=== PATIENT | male | born 1975 | race Caucasian/White ===

== ENCOUNTER 2022-01-07 09:20 | Day surgery (SDC) | payer BC ==
[2022-01-07] MEDS ORDERED: ZOLOFT 50MG50 MG PO (09:34)
[2022-01-07 10:55] VITALS: BP 110/78; PULSE 67; TEMP 97
--- NOTE | 2022-01-07 10:55 | NUR ---
Pt in room from endo suite. Written report obtained. Pt provided ice water and plain toast per request. Call sheldon is within reach on side table.
[2022-01-07 11:10] VITALS: BP 103/89; PULSE 66
--- NOTE | 2022-01-07 11:10 | NUR ---
VSS. Pt denies nausea. No vomiting. was brought into room. Call sheldon remains within reach.
[2022-01-07 11:25] VITALS: BP 110/81; PULSE 69
--- NOTE | 2022-01-07 11:25 | NUR ---
VSS. DC instructions and educational material reviewed. Pt denies questions and concerns. IV discontinued. Catheter tip intact. Pressure dressing applied. No redness or swelling noted. Pt denied needing assistance changing into personal clothes.
--- NOTE | 2022-01-07 11:41 | NUR ---
Pt dismissed from endo via wheelchair by [employer], tech. Pt has DC packet and personal belongings and transferred into the care of his Kerline, who is present to drive.
== END 2022-01-07 11:35 | disposition home or self-care (01) ==
LOC: SDCO 09:20
DX: Z12.11 Encounter for screening for malignant neoplasm of colon (principal); D12.0 Benign neoplasm of cecum; D12.8 Benign neoplasm of rectum
CPT/HCPCS: J2704; J3010